=== PATIENT | male | born 1990 | race American Indian/Alaskan Native ===

== ENCOUNTER 2022-11-03 10:23 | Emergency (ER) | payer SELFPAY ==
[~2022-11-03] VITALS: Ht 172.7 cm; Wt 97.5 kg
[2022-11-03 10:32] VITALS: TEMP 98.2; O2SAT 98
[2022-11-03 11:45] VITALS: BP 136/77; PULSE 58; RESP 16
[2022-11-03] MEDS ORDERED: KETOROLAC 60MG/2ML VIAL IM ONE (11:45)
[2022-11-03] MEDS ORDERED: ACETAMINOPHEN 325MG TABLET PO ONE (11:45)
[2022-11-03] MEDS ORDERED: BUPIVACAINE HCL/PF 0.25% (2.5MG/ML) 10ML INFIL ONE (11:45)
== END 2022-11-03 15:22 | disposition home or self-care (01) ==
LOC: ER 10:23
DX: M79.10 Myalgia, unspecified site (principal); M54.2 Cervicalgia
CPT/HCPCS: 99284; 20552; 96372; J1885; 99283; J3490

== ENCOUNTER 2023-01-21 08:06 | Emergency (ER) | payer SELFPAY ==
[~2023-01-21] VITALS: Ht 174 cm; Wt 93.0 kg
[2023-01-21 08:15] VITALS: PULSE 105; RESP 18
[2023-01-21 08:17] VITALS: BP 127/84; TEMP 98.2; O2SAT 100
[2023-01-21] MEDS ORDERED: CEFTRIAXONE SODIUM 500 MG/VIAL IM ONE (08:45)
[2023-01-21] MEDS ORDERED: LIDOCAINE HCL/EPINEPHRINE 1%-EPI 1:100,000 20 ML VIAL INFIL ONE (08:45)
[2023-01-21] MEDS ORDERED: DOXYCYCLINE HYCLATE 100MG CAPSULE PO ONE (08:45)
== END 2023-01-21 12:23 | disposition left against medical advice (07) ==
LOC: ER 08:06
DX: R51.9 Headache, unspecified (principal); J02.9 Acute pharyngitis, unspecified; R05.9 Cough, unspecified; R53.1 Weakness; R11.2 Nausea with vomiting, unspecified; M79.10 Myalgia, unspecified site
CPT/HCPCS: 99283; 71046; J0696; J3490